=== PATIENT | female | born 1990 | race Caucasian/White ===

== ENCOUNTER 2019-04-14 03:40 | Inpatient (IN) | payer OTHER ==
--- NOTE | 2019-04-14 04:14 | P.HPOB ---
History of Present Illness H&P Date: 04/14/19 Chief Complaint: IUP at 39 and 3/sevenths weeks, active labor This is a 28-year-old 3 para 2001 at 39 and 3/sevenths weeks with estimated due date of 04/18/2019. Patient presents to labor and delivery with complaints of regular painful contractions. Patient states contractions began around midnight and became progressively stronger. Patient presented to labor and delivery was noted to be completely dilated, with subsequent rupture of membranes on exam. Patient had been receiving routine care with myself. This care has been essentially uncomplicated. On bloodwork should a blood type O positive, rubella immune, hepatitis B surface antigen negative, GBS is negative. HIV negative, RPR nonreactive. Review of Systems Constitutional: Denies fatigue, Denies fever Ears, nose, mouth and throat: Denies headache Cardiovascular: Denies leg edema Respiratory: Denies dyspnea Gastrointestinal: Denies nausea, Denies vomiting Genitourinary: Reports Past Medical History Past Medical History: No Reported History History of Any Multi-Drug Resistant Organisms: None Reported Additional Past Surgical History / Comment(s): Brain Surgery to repair Aneurysm Past Psychological History: Bipolar Smoking Status: Current every day smoker Past Alcohol Use History: Occasional Past Drug Use History: None Reported Medications and Allergies Home Medications Medication Instructions Recorded Confirmed Type Permethrin 5% Cream [Elimite] 1 applic TOPICAL ONCE #60 cream..g. 12/19/13 Rx hydrOXYzine HCL 25 mg PO Q6HR PRN #30 tablet 12/19/13 Rx Allergies Allergy/AdvReac Type Severity Reaction Status Date / Time Sulfa (Sulfonamide Allergy Unknown Verified 12/19/13 16:07 Antibiotics) Exam Osteopathic Statement: *. No significant issues noted on an osteopathic structural exam other than those noted in the History and Physical/Consult. Targeted physical exam is performed in this date and slab tripper a well-nourished well-developed female, breathing is nonlabored and her heart has a regular rate and rhythm Assessment and Plan (1) Term Current Visit: Yes Status: Acute Code(s): Z34.90 - ENCNTR FOR SUPRVSN OF NORMAL , UNSP, UNSP TRIMESTER SNOMED Code(s): 75045514 (2) Active labor Current Visit: Yes Status: Acute Code(s): DWL9417 - SNOMED Code(s): 910693866 Plan: Patient is admitted to labor and delivery with expectation of a normal spontaneous vaginal delivery.
[2019-04-14] MEDS ORDERED: HYDROcodone/APAP 5-325MG 1 EACH TAB PO PRN (04:15)
[2019-04-14] MEDS ORDERED: diphenhydrAMINE 50 MG CAP PO PRN (04:15)
[2019-04-14] MEDS ORDERED: OXYTOCIN 20 UNITS/1000 ML NS 1,000 ML IV SCH (04:15)
[2019-04-14] MEDS ORDERED: diphenhydrAMINE 25 MG CAP PO PRN (04:15)
[2019-04-14] MEDS ORDERED: HYDROCORTISONE 2.5% RECTAL CREAM 30 GM TUBE RECTAL PRN (04:15)
[2019-04-14] MEDS ORDERED: ZOLPIDEM 5 MG TAB PO PRN (04:15)
[2019-04-14] MEDS ORDERED: diphenhydrAMINE 50 MG/ML 1 ML VIAL IVP PRN ×2 (04:15)
[2019-04-14] MEDS ORDERED: WITCH HAZEL 1 EACH MED..PAD TOPICAL PRN (04:15)
[2019-04-14] MEDS ORDERED: SIMETHICONE 80 MG CHEWABLE PO PRN (04:15)
[2019-04-14] MEDS ORDERED: LANOLIN CREAM 5 GM TUBE TOPICAL PRN (04:15)
[2019-04-14] MEDS ORDERED: BENZOCAINE/MENTHOL SPRAY 1 GM/SPRAY AEROSOL TOPICAL PRN (04:15)
--- NOTE | 2019-04-14 04:15 | P.PROBDLV ---
Vaginal Delivery Note - . Vaginal Delivery Note: Patient progressed precipitously to complete began pushing and had a normal spontaneous vaginal delivery of a viable male infant at 354, weight is pending at this time. Apgars were noted to be 8 and 8 at one and 5 minutes respectively. After a short delay the umbilical cord was doubly clamped and cut and the placenta was delivered spontaneously intact with three-vessel cord being noted. Inspection the patient's vaginal vault no lacerations were noted. The uterus is noted be firm and below the umbilicus. Estimated blood loss 200 mL. Patient and tolerated delivery well and are resting comfortably.
[2019-04-14] MEDS ORDERED: OXYTOCIN 10 UNIT/ML 1 ML VIAL IM ONE (04:52)
[2019-04-14] MEDS: IBUPROFEN 600 MG TAB PO PRN ×3 (06:20→19:44)
[2019-04-14] MEDS: SENNOSIDES-DOCUSATE SODIUM 1 EACH TAB PO SCH ×2 (08:31→21:01)
[2019-04-14] MEDS: ACETAMINOPHEN TAB 325 MG TAB PO PRN ×2 (11:19→22:01)
[2019-04-15] MEDS: IBUPROFEN 600 MG TAB PO PRN ×2 (04:10→11:44)
[2019-04-15 06:15] LABS: Basophils % (A) 1 %; Eosinophils # (A) 0.1 k/uL (0-0.7); Eosinophils % (A) 2 %; HCT 36.4 % (34.0-46.0); HGB 11.8 gm/dL (11.4-16.0); Lymphocytes # (A) 1.4 k/uL (1.0-4.8); Lymphocytes % (A) 17 %; MCH 32.3 pg (25.0-35.0); MCHC 32.4 g/dL (31.0-37.0); MCV 99.5 fL (80.0-100.0); Mean Platelet Volume 9.8; Monocytes # (A) 0.4 k/uL (0-1.0); Monocytes % (A) 5 %; Neutrophils # (A) 6.1 k/uL (1.3-7.7); Neutrophils % (A) 74 %; Platelet Count 147 k/uL (150-450); RBC 3.66 m/uL (3.80-5.40); RDW 12.6 % (11.5-15.5); WBC 8.2 k/uL (3.8-10.6)
--- NOTE | 2019-04-15 06:51 | P.DS ---
Providers Date of admission: 04/14/19 03:40 Expected date of discharge: 04/15/19 Attending physician: Dagmar Perez Primary care physician: Stated None - Discharge Diagnosis(es) (1) Term Current Visit: Yes Status: Acute (2) Active labor Current Visit: Yes Status: Acute (3) Status post vaginal delivery Current Visit: Yes Status: Acute Hospital Course: This is a pleasant 28-year-old 3 para 2001 at 39 2/7 weeks that presented to labor and delivery in active labor. Patient had been receiving routine care with myself and has been essentially uncomplicated. Patient progressed quickly to complete began pushing and had a normal spontaneous vaginal delivery of a viable male infant at 354, weight of 6 pounds 12.3 ounces. Patient had no vaginal lacerations noted at the time of delivery. Patient's course is been essentially uneventful. On this day #1 she is ambulating and voiding without difficulty. She is tolerating a regular diet without nausea or vomiting. She states her pain is well- controlled. Her lochia is minimal. She does wish discharge home on this post day #1. Patient Condition at Discharge: Good Plan - Discharge Summary Follow up Appointment(s)/Referral(s): Dagmar Perez DO [Doctor of Osteopathic Medicine] - 4 Weeks Patient Instructions/Handouts: Vaginal Delivery (DC), Vaginal Delivery (GEN) Discharge Disposition: HOME SELF-CARE
[2019-04-15] MEDS: SENNOSIDES-DOCUSATE SODIUM 1 EACH TAB PO SCH (08:37)
[2019-04-15] MEDS: ACETAMINOPHEN TAB 325 MG TAB PO PRN (08:40)
[2019-04-15 09:16] VITALS: BP 124/85; PULSE 86; RESP 18; TEMP 98.3
== END 2019-04-15 13:10 | disposition home or self-care (01) | DRG 807 ==
LOC: 4FBP 03:40
PROVIDERS: ADMIT Obstetrics & Gynecology Obstetrics; ATTEND Obstetrics & Gynecology Obstetrics
PROC: 10E0XZZ Delivery of Products of Conception, External Approach (ICD-10-PCS; principal; 2019-04-14)
DX: O99.344 Other mental disorders complicating childbirth (principal); Z37.0 Single live birth; O99.334 Smoking (tobacco) complicating childbirth; F17.200 Nicotine dependence, unspecified, uncomplicated; Z3A.39 39 weeks gestation of pregnancy; Z88.2 Allergy status to sulfonamides; F31.9 Bipolar disorder, unspecified
CPT/HCPCS: 85025

== ENCOUNTER → 2020-02-08 | Outpatient (CLI) | payer OTHER ==
--- NOTE | 2020-02-08 19:25 | CT ---
EXAMINATION TYPE: CT abdomen pelvis w con DATE OF EXAM: 02/08/2020 COMPARISON: None available. HISTORY: Abdominal/pelvic pain and abnormal vaginal bleeding. CT DLP: 356.3 mGycm Automated exposure control for dose reduction was used. TECHNIQUE: Helical acquisition of images was performed from the lung bases through the pelvis. CONTRAST: Performed without Oral Contrast and with IV Contrast, patient injected with 100ml mL of Isovue 300. FINDINGS: LUNG BASES: No significant abnormality is appreciated. LIVER/GB: No significant abnormality is appreciated. PANCREAS: No significant abnormality is seen. SPLEEN: No significant abnormality is seen. ADRENALS: No significant abnormality is seen. KIDNEYS: Punctate nonobstructing right renal calculus. No significant bilateral hydronephrosis or lef t nephrolithiasis. FREE AIR: No free air is visualized. RETROPERITONEAL ADENOPATHY: None visualized REPRODUCTIVE ORGANS: No significant abnormality is seen URINARY BLADDER: No significant abnormality is seen. PELVIC ADENOPATHY: None visualized. OSSEOUS STRUCTURES: No significant abnormality is seen. BOWEL: No significant abnormality is seen. No acute appendicitis. OTHER: None IMPRESSION: NO SIGNIFICANT ABNORMALITY. PUNCTATE NONOBSTRUCTING RIGHT RENAL CALCULUS.
== END | disposition home or self-care (01) ==
LOC: RADCTMAIN 17:25
PROVIDERS: ATTEND Family Medicine
DX: N20.0 Calculus of kidney (principal)
CPT/HCPCS: 74177; Q9967

== ENCOUNTER 2021-10-10 08:44 | Day surgery (SDC) | payer OTHER ==
[2021-10-09 11:45] VITALS: BMI 21.6
[~2021-10-10 08:44] MED LIST: LACTATED RINGERS 1,000 ML IV SCH; LIDOCAINE 1% (10MG/ML) FOR IV START INTRADERMA PRN; ONDANSETRON 4 MG/2 ML VIAL IVP PRN
[2021-10-10 09:49] VITALS: TEMP 97.8
[2021-10-10] MEDS ORDERED: LACTATED RINGERS 1,000 ML IV ONE (09:56)
[2021-10-10] MEDS ORDERED: PROPOFOL 10 MG/ML 20 ML VIAL IV ONE (10:34)
[2021-10-10] MEDS ORDERED: GLYCOPYRROLATE 0.2 MG/ML 2 ML VIAL ONE (10:34)
--- NOTE | 2021-10-10 10:56 | P.PCN ---
Date of Procedure: 10/10/21 Procedure(s) Performed: BRIEF HISTORY: Patient is a 31-year-old pleasant white female scheduled for an elective colonoscopy as a part of change in bowel habits and intermittent rectal bleeding for the last 2 years duration. PROCEDURE PERFORMED: Colonoscopy. PREOPERATIVE DIAGNOSIS: Change in bowel habits and intermittent rectal bleeding. IV sedation per Anesthesia. PROCEDURE: After informed consent was obtained, the patient, was brought into the endoscopy unit. IV sedation was administered by Anesthesia under continuous monitoring. Digital rectal examination was normal. Initially the Olympus CF-160 flexible video colonoscope was then inserted in the rectum, gradually advanced into the cecum without any difficulty. Careful examination was performed as the scope was gradually being withdrawn. Ileocecal valve and the appendiceal orifice were visualized and appeared normal. Prep was excellent. Mucosa of the cecum, ascending colon, transverse colon, descending colon, sigmoid colon, and rectum appeared normal. Retroflexion was performed in the rectum and small internal hemorrhoids were seen. The patient tolerated the procedure well. IMPRESSION: Normal-appearing colon from rectum to cecum with no evidence of colorectal neoplasia. Small internal hemorrhoids. RECOMMENDATIONS: Findings of this examination were discussed with the patient as well as her family. She was advised to be a high-fiber diet and take fiber supplements a regular basis..
[2021-10-10 11:19] VITALS: RESP 16
[2021-10-10 11:31] VITALS: BP 131/75; PULSE 54
== END 2021-10-10 11:35 | disposition home or self-care (01) ==
LOC: ORWHC2ENDO 08:44
PROVIDERS: ATTEND Internal Medicine Gastroenterology
DX: K64.8 Other hemorrhoids (principal); Z88.2 Allergy status to sulfonamides; Z87.891 Personal history of nicotine dependence
CPT/HCPCS: 81025; 45378; J2704

== ENCOUNTER 2022-07-12 13:11 | Outpatient (CLI) | payer OTHER ==
[2022-07-12] MEDS ORDERED: BETAMET ACET-BETAMETH SOD PHOS 6 MG/ML MDV IM SCH (14:00)
[2022-07-12 14:35] VITALS: BP 100/58; PULSE 72; RESP 16; TEMP 97.2
--- NOTE | 2022-07-17 18:08 | P.MSEPDOC ---
Presenting Problems - Arrival Data Date of Arrival on Unit: 07/12/22 Time of Arrival on Unit: 13:11 Mode of Transport: Ambulatory - Complaint OB-Reason for Admission/Chief Complaint: NST, Celestone Injection Medical History - Information : 4 Para: 3 Term: 3 : 0 Abortions: Spontaneous or Elective: 0 Number of Living Children: 3 - Gestational Age Gestational Age by ROSIO (wks/days): 35 Weeks and 6 Days Review of Systems - Review of Systems Constitutional: No problems Breast: No problems ENT: No problems Cardiovascular: No problems Respiratory: No problems Gastrointestinal: No problems Genitourinary: No problems Musculoskeletal: No problems Neurological: No problems Skin: No problems Vital Signs - Temperature Temperature: 97.2 F Temperature Source: Oral - Pulse Right Pulse Oximetery Pulse Rate: 72 Pulse Assessment Method: Pulse Oximetry - Respirations Respiratory Rate: 16 Oxygen Delivery Method: Room Air - Blood Pressure Left Arm Sitting Blood Pressure: 100/58 Blood Pressure Mean: 72 Blood Pressure Source: Automatic Cuff Medical Screen Scoring - Uterine Contractions Frequency From (mins): 0 Frequency To (mins): 0 Duration From (seconds): 0 Duration To (seconds): 0 Resting: Soft to palpation - Assessment - Baby A Baseline FHR: 120 Heart Rate - NICHD Category: Category I (Normal) Physician Notification - Physician Notified Physician Notified Date: 07/12/22 Physician Notified Time: 13:55 Physician: Russ New Order Received: Yes (Discharge home) - Notification Comment Comment: Call placed to Dr Perez. Report of reactive NST and celestone given. Order. received to discharge patient home. Maternal Triage Index - Maternal Triage Index Presenting for scheduled procedure w/no complaint: Yes - Stat/Priority 1 Stat Priority 1: No - Urgent/Priority 2 Urgent Priority 2: No - Prompt/Priority 3 Prompt Priority 3: No - Non-Urgent/Priority 4 Non-Urgent Priority 4: No - Scheduled/Requesting Priority 5 Scheduled/Requesting Priority 5: No Disposition - Disposition OB Disposition: Discharge to home Discharge Date: 07/12/22 Discharge Time: 14:01 I agree with the RN Medical Screening Exam: Yes Case reviewed; plan agreed upon as documented in EMR&OBIX.: Yes Diagnosis: RELATED CONDITIONS, UNSPECIFIED, THIRD TRIMESTER
== END 2022-07-12 14:00 | disposition home or self-care (01) ==
LOC: FBPOP 13:11
PROVIDERS: ATTEND Obstetrics & Gynecology Obstetrics
DX: O26.893 Other specified pregnancy related conditions, third trimester (principal); O99.333 Smoking (tobacco) complicating pregnancy, third trimester; F17.200 Nicotine dependence, unspecified, uncomplicated; Z88.2 Allergy status to sulfonamides; Z3A.35 35 weeks gestation of pregnancy
CPT/HCPCS: 59025; 96372; G0463; J0702; 99213

== ENCOUNTER 2022-07-23 06:05 | Inpatient (IN) | payer OTHER ==
[2022-07-23] MEDS ORDERED: CARBOPROST TROMETHAMINE 250 MCG/ML 1 ML AMP IM PRN (06:13)
[2022-07-23] MEDS ORDERED: TERBUTALINE 1 MG/ML VIAL SQ PRN (06:13)
[2022-07-23] MEDS ORDERED: OXYTOCIN 10 UNIT/ML 1 ML VIAL IM PRN (06:13)
[2022-07-23] MEDS ORDERED: TRANEXAMIC ACID IN NACL,ISO-OS 1,000 MG in EMPTY BAG 1 BAG IV PRN (06:13)
[2022-07-23] MEDS ORDERED: METHYLERGONOVINE 0.2 MG/ML 1 ML AMP IM PRN (06:13)
[2022-07-23] MEDS ORDERED: miSOPROStoL 200 MCG TAB PO PRN (06:13)
[2022-07-23] MEDS ORDERED: LIDOCAINE 0.5% (PF) 5 MG/ML (50 ML SDV) SQ PRN (06:13)
[2022-07-23] MEDS ORDERED: OXYTOCIN 30 UNITS/500 ML NS 30 UNIT in SALINE 1 500ML.BAG IV SCH ×2 (06:15→15:45)
[2022-07-23] MEDS: LACTATED RINGERS 1,000 ML IV SCH ×2 (06:28→13:24)
[2022-07-23 06:58] LABS: Basophils % (A) 0 %; Eosinophils # (A) 0.1 k/uL (0-0.7); Eosinophils % (A) 1 %; HGB 11.5 gm/dL (11.4-16.0); Lymphocytes % (A) 15 %; MCH 32.6 pg (25.0-35.0); MCHC 33.7 g/dL (31.0-37.0); MCV 96.8 fL (80.0-100.0); Mean Platelet Volume 8.8; Monocytes # (A) 0.6 k/uL (0-1.0); Monocytes % (A) 5 %; Neutrophils # (A) 10.4 k/uL (1.3-7.7); Neutrophils % (A) 77 %; Platelet Count 241 k/uL (150-450); RBC 3.52 m/uL (3.80-5.40); RDW 12.9 % (11.5-15.5); WBC 13.5 k/uL (3.8-10.6)
[2022-07-23] MEDS ORDERED: BUTORPHANOL 2 MG/ML 1 ML VIAL IV PRN (13:24)
[2022-07-23] MEDS ORDERED: fentaNYL (PF) 50 MCG/ML 5 ML AMP ONE (15:06)
[2022-07-23] MEDS ORDERED: ROPIVACAINE 5 MG/ML 20 ML AMPULE ONE (15:06)
[2022-07-23] MEDS ORDERED: SODIUM CHLORIDE 0.9% 100 ML BAG ONE (15:06)
[2022-07-23] MEDS ORDERED: BENZOCAINE/MENTHOL SPRAY 1 GM/SPRAY AEROSOL TOPICAL PRN (15:38)
[2022-07-23] MEDS ORDERED: diphenhydrAMINE 25 MG CAP PO PRN (15:38)
[2022-07-23] MEDS ORDERED: LANOLIN CREAM 5 GM TUBE TOPICAL PRN (15:38)
[2022-07-23] MEDS ORDERED: SIMETHICONE 80 MG CHEWABLE PO PRN (15:38)
[2022-07-23] MEDS ORDERED: diphenhydrAMINE 50 MG/ML 1 ML VIAL IVP PRN ×2 (15:38)
[2022-07-23] MEDS ORDERED: ZOLPIDEM 5 MG TAB PO PRN (15:38)
[2022-07-23] MEDS ORDERED: HYDROCORTISONE 2.5% RECTAL CREAM 30 GM TUBE RECTAL PRN (15:38)
[2022-07-23] MEDS ORDERED: diphenhydrAMINE 50 MG CAP PO PRN (15:38)
[2022-07-23] MEDS ORDERED: ACETAMINOPHEN TAB 325 MG TAB PO PRN (15:38)
--- NOTE | 2022-07-23 15:43 | P.HPOB ---
History of Present Illness H&P Date: 07/23/22 Chief Complaint: IUP @ 37 weeks, IUGR This is a 31 yo at 37 2/7 weeks, EDC 08/10. She has been receiving care with myself and did not receive care for about 1 month, she states she was having car trouble. She was diagnosed with IUGR, last US 07/11 4-8. 2.8 %il e, nml LANI. she did receive betamethasone injections approximately 2 weeks ago as well. she is noting good FM, and occasional contractions. On bloodwork this patient is a blood type of O+ Review of Systems Constitutional: Denies chills, Denies fatigue, Denies fever Ears, nose, mouth and throat: Denies headache Cardiovascular: Denies leg edema Respiratory: Denies dyspnea Gastrointestinal: Denies constipation, Denies diarrhea, Denies nausea, Denies vomiting Genitourinary: Reports Past Medical History Past Medical History: Thyroid Disorder Additional Past Medical History / Comment(s): Hypothyroidsm "in remission since 2013". History of Any Multi-Drug Resistant Organisms: MRSA Date of last positivie culture/infection: 2013 MDRO Source:: Back Additional Past Surgical History / Comment(s): Brain Surgery to repair Aneurysm. Past Anesthesia/Blood Transfusion Reactions: No Reported Reaction Past Psychological History: Anxiety Smoking Status: Never smoker Past Drug Use History: None Reported - Past Family History Mother Family Medical History: No Reported History Medications and Allergies Home Medications Medication Instructions Recorded Confirmed Type Vit No.179/Iron/Folic 1 tab PO DAILY 07/11/22 07/23/22 History [ Tablet] Allergies Allergy/AdvReac Type Severity Reaction Status Date / Time Sulfa (Sulfonamide Allergy Unknown Verified 07/23/22 06:12 Antibiotics) Exam Osteopathic Statement: *. No significant issues noted on an osteopathic structural exam other than those noted in the History and Physical/Consult. Vital Signs Temp Pulse Resp BP Pulse Ox 07/23/22 06:22 97.2 F L 78 16 124/69 98 Intake and Output 07/22/22 07/23/22 07/23/22 22:59 06:59 14:59 Other: Weight 72.575 kg Targeted physical exam is performed in this date and feed miller a well-nourished well-developed female in no acute distress, breathing is noted to be nonlabored, heart has regular rate and rhythm, abdomen is gravid, on cervical exam she is 2/thick/-3 station vertex presentation amniotomy is performed and clear fluid was obtained. heart tones are noted to be category 1 and she is viola every 2 minutes Results Result Diagrams: 07/23/22 06:30 Abnormal Lab Results - Last 24 Hours (Table) 07/23/22 Range/Units 06:30 WBC 13.5 H (3.8-10.6) k/uL RBC 3.52 L (3.80-5.40) m/uL Neutrophils # 10.4 H (1.3-7.7) k/uL Assessment and Plan (1) 37 weeks gestation of Current Visit: Yes Status: Acute Code(s): Z3A.37 - 37 WEEKS GESTATION OF SNOMED Code(s): 47349069 (2) IUGR (intrauterine growth restriction) Current Visit: Yes Status: Acute Code(s): BIU3118 - SNOMED Code(s): 00331789 Plan: 31-year-old at 37-27 the presents to labor and delivery for induction of labor secondary to intrauterine growth restriction. Patient is admitted and Pitocin induction of labor was begun per hospital protocol. Amniotomy was performed clear fluid was obtained. Patient does request epidural when appropriate. Options for analgesia are discussed including Stadol, nitrous, epidural. Anticipate spontaneous vaginal delivery.
--- NOTE | 2022-07-23 15:43 | P.PROBDLV ---
Vaginal Delivery Note - . Vaginal Delivery Note: This is a 31-year-old 4 para 3 at 37-2/7 weeks that presents to labor and delivery for induction of labor secondary to severe IUGR, estimated weight 2nd percentile. Patient did received betamethasone 2 proximally 2 weeks ago. Patient was admitted and Pitocin induction of labor was begun. Patient underwent amniotomy clear fluid was obtained. Patient progressed through labor eventually getting 1 dose of Stadol. Patient did request epidural but upon sitting up for the epidural she noted intense rectal pressure. Patient was noted be completely dilated. With excellent maternal effort patient had a normal spontaneous vaginal delivery of a viable female at 1528, weight of 5-6, apgars of 9-9 at 1 and 5 minutes respectively After two-minute delayed the umbilical cord was doubly clamped and cut. Placenta was delivered spontaneously intact with three-vessel cord being noted. Uterus noted to be firm and below the umbilicus. Inspection the patient's vaginal vault no vaginal lacerations were appreciated. Estimated blood loss 100 mL All counts are correct 2, patient and infant tolerated delivery well and are resting complete.
[2022-07-23] MEDS: IBUPROFEN 600 MG TAB PO SCH (17:54)
[2022-07-24] MEDS: IBUPROFEN 600 MG TAB PO SCH ×3 (02:03→16:24)
[2022-07-24] MEDS: SENNOSIDES-DOCUSATE SODIUM 1 EACH TAB PO SCH ×2 (05:32→09:19)
--- NOTE | 2022-07-24 08:40 | P.DS ---
Providers Date of admission: 07/23/22 06:05 Expected date of discharge: 07/24/22 Attending physician: Dagmar Perez Primary care physician: Stated None - Discharge Diagnosis(es) (1) 37 weeks gestation of Current Visit: Yes Status: Acute (2) IUGR (intrauterine growth restriction) Current Visit: Yes Status: Acute (3) Status post vaginal delivery Current Visit: No Status: Acute Hospital Course: 31 yo that was admitted to labor and delivery yesterday for scheduled induction of labor secondary to severe IUGR, estimated weight of 2 percentile. Patient had care with a large gap in the third trimester. Patient stated she had some financial difficulties and was unable to attend her visits. Patient was admitted to labor and delivery and toast induction of labor was begun per hospital protocol. Amniotomy is performed and clear fluid was obtained. Patient progressed through labor eventually becoming uncomfortable and did request epidural placement medial after epidural placement she was noted to be completely dilated and began pushing. Patient had a normal spontaneous vaginal delivery of a viable female infant at 1528, weight of 5 pounds 6.4 ounces, Apgars of 9 and 9 at one and 5 minutes respectively. No vaginal lacerations were appreciated after delivery. On this day #1 patient is ambulating and voiding without difficulty. Patient is feeling well and would like discharge home later today if is discharged as well. She states her pain is well-controlled. She is bottle feeding. She states her lochia is moderate. Patient Condition at Discharge: Good Plan - Discharge Summary New Discharge Prescriptions: No Action Vit No.179/Iron/Folic [ Tablet] 1 tab PO DAILY Discharge Medication List Vit No.179/Iron/Folic [ Tablet] 1 tab PO DAILY 07/11/22 [History] Follow up Appointment(s)/Referral(s): Dagmar Perez DO [Doctor of Osteopathic Medicine] - 4 Weeks Patient Instructions/Handouts: Vaginal Delivery (GEN), Vaginal Delivery (DC) Activity/Diet/Wound Care/Special Instructions: No tub baths or intercourse until 6 weeks . Patient's call the office for routine checkup 4 weeks. [id number] ibuprofen 6 her mill igrams every 6 hours as needed for pain. Discharge Disposition: HOME SELF-CARE
[2022-07-24 09:28] VITALS: RESP 14
[2022-07-24] MEDS ORDERED: MEASLES-MUMPS-RUBELLA VACC/PF 12,500 UNIT/0.5 ML VIAL SQ ONE (15:01)
[2022-07-24 17:40] VITALS: BP 107/66; PULSE 71; TEMP 98.5
== END 2022-07-24 18:00 | disposition home or self-care (01) | DRG 560 ==
LOC: 4FBP 06:05
PROVIDERS: ADMIT Obstetrics & Gynecology Obstetrics; ATTEND Obstetrics & Gynecology Obstetrics
PROC: 10E0XZZ Delivery of Products of Conception, External Approach (ICD-10-PCS; principal; 2022-07-23)
PROC: 10907ZC Drainage of Amniotic Fluid, Therapeutic from Products of Conception, Via Natural or Artificial Opening (ICD-10-PCS; 2022-07-23)
PROC: 3E033VJ Introduction of Other Hormone into Peripheral Vein, Percutaneous Approach (ICD-10-PCS; 2022-07-23)
DX: O36.5930 Maternal care for other known or suspected poor fetal growth, third trimester, not applicable or unspecified (principal); O99.344 Other mental disorders complicating childbirth; E03.9 Hypothyroidism, unspecified; O99.284 Endocrine, nutritional and metabolic diseases complicating childbirth; F41.9 Anxiety disorder, unspecified; Z88.2 Allergy status to sulfonamides; Z3A.37 37 weeks gestation of pregnancy; Z37.0 Single live birth; Z86.16 Personal history of COVID-19
CPT/HCPCS: 85025; 86850; 86900; 86901; 88307; 90707

== ENCOUNTER → 2023-09-13 | Outpatient (CLI) | payer OTHER ==
[2023-09-13 18:17] LABS: Basophils # (A) 0.04 X 10*3/uL (0.00-0.10); Basophils % (A) 0.6 %; Eosinophils # (A) 0.07 X 10*3/uL (0.04-0.35); Eosinophils % (A) 1.1 %; HCT 39.2 % (37.2-46.3); Lymphocytes % (A) 23.6 %; MCH 32.5 pg (27.0-32.0); MCHC 33.2 g/dL (32.0-37.0); Mean Platelet Volume 10.5 FL (9.5-12.2); Monocytes % (A) 6.3 %; NRBC Per 100 WBC 0 X 10*3/uL (0.00-0.01); Neutrophils # (A) 4.32 X 10*3/uL (1.80-7.70); Neutrophils % (A) 68.1 %; Platelet Count 229 X 10*3/uL (140-440); RDW 13.2 % (11.5-14.5); WBC 6.35 X 10*3/uL (4.50-10.00)
== END | disposition home or self-care (01) ==
LOC: LABWHC1 14:15
PROVIDERS: ATTEND Obstetrics & Gynecology Obstetrics
DX: Z01.812 Encounter for preprocedural laboratory examination (principal)
CPT/HCPCS: 36415; 85025

== ENCOUNTER 2023-09-30 07:55 | Day surgery (SDC) | payer OTHER ==
[2023-09-26 13:44] VITALS: BMI 20.9
[2023-09-30] MEDS ORDERED: LIDOCAINE 1% (10MG/ML) FOR IV START INTRADERMA PRN (08:06)
[2023-09-30] MEDS: IV FLUID CONTINUATION 1,000 ML IV ONE (08:22)
[2023-09-30] MEDS: ONDANSETRON 4 MG/2 ML VIAL IVP ONE (08:23)
[2023-09-30] MEDS: DEXAMETHASONE SOD PHOSPHATE 4 MG/ML 1 ML VIAL IV ONE (08:23)
[2023-09-30] MEDS: LACTATED RINGERS 1,000 ML IV SCH (08:24)
--- NOTE | 2023-09-30 09:09 | P.HPOB ---
History of Present Illness H&P Date: 09/30/23 Chief Complaint: Family-planning This is a 33-year-old female that presents for scheduled laparoscopy with bilateral salpingectomy. Patient states she is done with childbearing and wishes permanent sterilization. Patient notes her menstrual cycles to be regular every 28 to 34 days, lasting approximately 7 days medium in flow occasional clotting. Patient denies dysmenorrhea. Patient is currently sexually active and on no contraception. Review of Systems Constitutional: Denies chills, Denies fatigue, Denies fever Ears, nose, mouth and throat: Denies headache Cardiovascular: Denies leg edema Respiratory: Denies dyspnea Gastrointestinal: Denies nausea, Denies vomiting Genitourinary: Denies Past Medical History Past Medical History: Thyroid Disorder Additional Past Medical History / Comment(s): Hypothyroidsm "in remission since 2016". History of Any Multi-Drug Resistant Organisms: MRSA Date of last positivie culture/infection: 2013 MDRO Source:: Back Additional Past Surgical History / Comment(s): Brain Surgery to repair [id number] Past Anesthesia/Blood Transfusion Reactions: No Reported Reaction Additional Past Anesthesia/Blood Transfusion Reaction / Comment(s): no hx blood transfusion Smoking Status: Never smoker - Past Family History Mother Family Medical History: No Reported History Additional Family Medical History / Comment(s): maternal grandfather hx factor 5 Medications and Allergies Home Medications Medication Instructions Recorded Confirmed Type No Known Home Medications 09/26/23 09/26/23 History Allergies Allergy/AdvReac Type Severity Reaction Status Date / Time Sulfa (Sulfonamide Allergy Rash/Hives Verified 09/30/23 08:28 Antibiotics) Exam Osteopathic Statement: *. No significant issues noted on an osteopathic structural exam other than those noted in the History and Physical/Consult. Vital Signs Temp Pulse Resp BP Pulse Ox 09/30/23 08:29 97.7 F 47 L 16 101/51 100 Intake and Output 09/29/23 09/30/23 09/30/23 22:59 06:59 14:59 Other: Weight 62.6 kg Targeted physical exam is performed this date General is well-nourished well- developed non female in no acute distress, breathing is nonlabored, heart has a regular rate and rhythm, abdomen is soft and nontender, on genitourinary exam external genitalia is noted to be normal for age, the vaginal tissue is pink and well-rugated the bladder is noted to be nontender the cervix is without lesion the uterus is mobile and normal in size. Assessment and Plan (1) Family planning Current Visit: Yes Status: Acute Code(s): Z30.09 - ENCOUNTER FOR OTH GENERAL CNSL AND ADVICE ON CONTRACEPTION SNOMED Code(s): 210718888 Plan: 33-year-old female that presents for scheduled bilateral salpingectomy. Patient wishes permanent sterilization as she is done with childbearing. Patient is counseled on risks of surgery including but not limited to infection, bleeding, damage to bladder, bowel, ureteric injury. Patient states understanding and wishes to proceed. Will proceed with operative laparoscopy, bilateral salpingectomy, possible Filshie clip application if unable to perform salpingectomy.
[2023-09-30] MEDS ORDERED: ROCURONIUM 10 MG/ML (5 ML VIAL) IV ONE (09:55)
[2023-09-30] MEDS ORDERED: KETOROLAC 15 MG/ML 1 ML VIAL ONE (09:55)
[2023-09-30] MEDS ORDERED: fentaNYL (PF) 50 MCG/ML 2 ML AMP ONE (09:55)
[2023-09-30] MEDS ORDERED: LIDOCAINE 1% INJ 10MG/ML (20 ML MDV) ONE (09:55)
[2023-09-30] MEDS ORDERED: SUCCINYLCHOLINE CHLORIDE 200 MG/10 ML VIAL IV ONE (09:55)
[2023-09-30] MEDS ORDERED: NEOSTIGMINE 1 MG/ML 10 ML VIAL ONE (09:55)
[2023-09-30] MEDS ORDERED: GLYCOPYRROLATE 0.2 MG/ML 2 ML VIAL ONE (09:55)
[2023-09-30] MEDS ORDERED: PROPOFOL 10 MG/ML 20 ML VIAL IV ONE (09:55)
[2023-09-30] MEDS: BUPIVACAINE (PF) 0.25% 30 ML VIAL SQ ONE (10:00)
--- NOTE | 2023-09-30 10:51 | P.OP ---
Date of Procedure: 09/30/23 Preoperative Diagnosis: Family status complete Postoperative Diagnosis: Same Procedure(s) Performed: Operative laparoscopy with bilateral salpingectomy Anesthesia: CHENCHO Surgeon: Dagmar Perez Estimated Blood Loss (ml): 2 IV fluids (ml): 600 Urine output (ml): 100 (Clear yellow) Pathology: other (Bilateral fallopian tubes) Condition: stable Disposition: PACU Indications for Procedure: Desire for permanent sterilization Operative Findings: Normal pelvic anatomy Description of Procedure: Patient was taken back to the operating suite where general anesthesia was obtained without difficulty by the anesthesia department. She was prepped and draped in the normal sterile fashion in the dorsolithotomy position. A red rubber catheter was used to drain the bladder of clear yellow urine. Speculum was placed the cervix was visualized the antilipid the cervix was grasped with a single-tooth tenaculum and acorn uterine manipulator was advanced into the cervix as a means to manipulate the uterus throughout the procedure. Attention was then turned to the patient's abdomen where in the umbilical fold a small skin incision was made. Through this incision the Veress needle was placed. Once the Veress needle was deemed to be in the appropriate position with a drop of CO2 pressure with the insufflation of CO2 gas CO2 insufflation was allowed to occur. Approximately 3 L of gas were used to obtain pneumoperitoneum. At this time a 5 mm trocar and sleeve with the laparoscope in place was placed through the skin incision and toward the pneumoperitoneum. The above-noted findings were visualized. The additional port sites were placed are placed in the lateral abdomen under direct visualization. The right fallopian tube was elevated the LigaSure was placed and the mesosalpinx was transected up to the cornual region. This fallopian tube was then removed without difficulty. This was then repeated on the opposite side. Both fallopian tubes were removed without difficulty pedicles were noted to be hemostatic. At this time all instruments were removed from the patient's abdomen skin incisions were closed with 4-0 Vicryl in a subcuticular fashion Steri-Strips and sterile dressings were applied. Attention was then turned the patient's vaginal vault where all instruments were removed without difficulty. The cervix was noted to be hemostatic from placement of the single-tooth tenaculum. All counts were to be correct x 2. Patient tolerated procedure well and was taken to the recovery room awake in stable condition.
[2023-09-30 11:00] VITALS: TEMP 96.8
[2023-09-30] MEDS: GLYCOPYRROLATE 0.2 MG/ML 2 ML VIAL IVP STA (11:59)
[2023-09-30] MEDS: LACTATED RINGERS 1,000 ML IV ONE (12:00)
[2023-09-30] MEDS: HYDROmorphone 0.5 MG/0.5 ML SYRINGE IVP PRN (12:16)
[2023-09-30 12:51] VITALS: RESP 18
[2023-09-30 13:15] VITALS: BP 97/57; PULSE 51
== END 2023-09-30 13:27 | disposition home or self-care (01) ==
LOC: OR 07:55
PROVIDERS: ATTEND Obstetrics & Gynecology Obstetrics
DX: Z30.2 Encounter for sterilization (principal); N83.8 Other noninflammatory disorders of ovary, fallopian tube and broad ligament; E07.9 Disorder of thyroid, unspecified; G40.909 Epilepsy, unspecified, not intractable, without status epilepticus; F41.9 Anxiety disorder, unspecified; Z88.2 Allergy status to sulfonamides; Z87.891 Personal history of nicotine dependence
CPT/HCPCS: 58661; 81025; 88302; J0330; J1100; J2710; J2405; J2001; J3010; J1885; J2704; J1170; J0665; J1596